=== PATIENT | male | born 1990 | race Caucasian/White ===

== ENCOUNTER 2017-08-10 17:55 | Emergency (ER) | payer MEDICAID ==
--- NOTE | 2017-08-10 19:11 | EDM.PDOC ---
ED HPI GENERAL MEDICAL PROBLEM - General Chief Complaint: Exposure to Heat or Cold Stated Complaint: FROSTBITE,BLISTERS BOTH HANDS Time Seen by Provider: 08/10/17 18:43 Source of Information: Reports: Patient History Limitations: Reports: No Limitations - History of Present Illness INITIAL COMMENTS - FREE TEXT/NARRATIVE: This patient comes in for blisters on his fingers. He was working outside in the cold yesterday and temperature is well below 0 and was removing a field filter. Some fuel splashed on his gloves and he kept working for a a few more minutes today he notices some blistering to his fingers. - Related Data Allergies Allergy/AdvReac Type Severity Reaction Status Date / Time Penicillins Allergy Hives Verified 08/10/17 18:16 Home Meds: Home Meds NK [No Known Home Meds] 08/10/17 [History] Past Medical History Musculoskeletal History: Reports: Fracture - Past Surgical History Musculoskeletal Surgical History: Reports: Other (See Below) Other Musculoskeletal Surgeries/Procedures:: surgery on foot after a logging equipment injury. Social & Family History - Tobacco Use Smoking Status *Q: Light Tobacco Smoker Years of Tobacco use: 6 Packs/Tins Daily: 0.5 - Recreational Drug Use Recreational Drug Use: No ED ROS GENERAL - Review of Systems Review Of Systems: ROS reveals no pertinent complaints other than HPI. ED EXAM, GENERAL - Physical Exam Exam: See Below Exam Limited By: No Limitations General Appearance: Alert, WD/WN, No Apparent Distress Extremities: Other (Exam of the hands shows a large bulla to the pad of the right middle finger. The left hand shows a bulla to the lateral or thumb side of the distal phalanx of the index finger there's also a small bulla to the pad of the left middle finger and another one today thumb side of the middle phalanx of the left hand. There didn't appear to be any blistering to the palms of the hands otherwise neurovascular tendon all intact) Course - Vital Signs Last Recorded V/S: Last Vital Signs Temp 36.7 C 08/10/17 18:15 Pulse 61 08/10/17 18:15 Resp 16 08/10/17 18:15 BP 147/65 H 08/10/17 18:15 Pulse Ox 98 08/10/17 18:15 - Re-Assessments/Exams Free Text/Narrative Re-Assessment/Exam: 08/10/17 19:[address] Jeff Espinoza and he would like to see him in clinic tomorrow tonight will just wrap his hands up with some dry gauze. Departure - Departure Time of Disposition: 19:08 Disposition: Home, Self-Care 01 Clinical Impression: Frostbite of both hands - Discharge Information Referrals: PCP,None [Primary Care Provider] - Forms: ED Department Discharge Additional Instructions: Leave the gauze on tonight. Don't try to pop any of the blisters. Follow-up with Dr. Frannie Espinoza at 10 AM in clinic tomorrow. If needed take Tylenol or ibuprofen for pain
[2017-08-10 19:14] VITALS: BP 136/89
== END 2017-08-10 19:21 | disposition home or self-care (01) ==
LOC: JP.ED 17:55
DX: T33.532A Superficial frostbite of left finger(s), initial encounter (principal); T33.531A Superficial frostbite of right finger(s), initial encounter; R23.8 Other skin changes; Z88.0 Allergy status to penicillin; F17.210 Nicotine dependence, cigarettes, uncomplicated; X31.XXXA Exposure to excessive natural cold, initial encounter
CPT/HCPCS: 99283